=== PATIENT | female | born 1950 | race Caucasian/White ===

== ENCOUNTER → 2024-11-11 11:02 | Outpatient (CLI) | payer MEDICARE, SELFPAY ==
--- NOTE | 2024-11-11 11:05 | DI.RAD.S_ITS ---
PROCEDURE: FL ARTHROGRAM SHOULDER RT INDICATIONS: Acute rt shoulder pain COMPARISON: [facility], MR, MR SHOULDER RT W CON, 11/11/2024, 11:27. TECHNIQUE: The indications, alternatives, benefits, risks, and complications of the procedure were explained to the patient. Written informed consent was obtained and placed in the chart. The shoulder was examined fluoroscopically and a site for needle placement chosen for entry into the glenohumeral joint from an anterior approach. The skin was prepped and draped in a sterile fashion, and 1% lidocaine infiltrated from skin down to joint capsule. A spinal needle was inserted into the glenohumeral joint, and a small amount of iodinated contrast media injected to confirm intra-articular placement of the needle tip. This was followed by approximately 12 mL dilute solution of a gadolinium containing MR contrast agent. The needle was removed and a dressing was applied. The patient was given postprocedural instructions and sent to the MR suite for MR imaging. FINDINGS: A single fluoroscopic spot image demonstrates intra-articular location of injected iodinated contrast. IMPRESSION: Successful fluoroscopically guided administration of dilute Gadolinium solution into the shoulder joint for MR arthrogram. Dictated by: Zoila Castillo M.D. on 11/12/2024 at 10:29 Approved by: Zoila Castillo M.D. on 11/12/2024 at 10:30
--- NOTE | 2024-11-11 11:05 | DI.MRI.S_ITS ---
PROCEDURE: MR SHOULDER RT W CON INDICATIONS: Acute rt shoulder pain TECHNIQUE: After the administration of 12 mL of dilute intra-articular Gadolinium contrast, oblique coronal T1 and T2 spin echo with fat saturation, oblique sagittal T1 spin echo with and without fat saturation, oblique sagittal T2 fast spin echo with fat saturation, axial T1 spin echo with fat saturation through the shoulder. COMPARISON: None. FINDINGS: Image quality: Excellent. Rotator cuff: Full-thickness rupture of distal supraspinatus and infraspinatus at their insertions on humeral head is seen with up to 3.8 cm medial retraction of torn tendon fibers to the level of acromioclavicular joint. Contrast is seen extending to subacromial subdeltoid bursa. Low-grade intrasubstance partial-thickness tear involving distal subscapularis is seen. Moderate supraspinatus and infraspinatus muscle atrophy is seen on sagittal images. Bones and bursae: Superior migration of humeral head in relation to glenoid. Moderate acromioclavicular joint osteoarthritis and [id number] glenohumeral joint osteoarthritis. No acute fracture or dislocation. Capsule and soft tissues: Signal abnormality and fraying involving superior glenoid labrum is seen suggestive of superior labral tear. The glenohumeral ligaments appear intact. The long head of the biceps tendon demonstrates normal location and morphology. No intra-articular bodies. IMPRESSION: 1. Full-thickness rupture of distal supraspinatus and infraspinatus at their insertions on humeral head with up to 3.8 cm medial retraction of torn tendon fibers to the level of acromioclavicular joint. Moderate supraspinatus and infraspinatus muscle atrophy. 2. Low-grade intrasubstance partial-thickness tear involving distal subscapularis. 3. Superior migration of humeral head in relation to glenoid. No acute fracture or dislocation. Moderate acromioclavicular joint osteoarthritis and [id number] glenohumeral joint osteoarthritis. No loose bodies. 4. Finding is suggestive of superior glenoid labral tear. Dictated by: Deandre Wallace M.D. on 11/11/2024 at 13:53 Approved by: Deandre Wallace M.D. on 11/11/2024 at 15:40
[2024-11-11] MEDS: SODIUM CHLORIDE 0.9 % 20 ML VIAL IV (11:47)
[2024-11-11] MEDS: LIDOCAINE 1% 20 ML INJ (11:47)
== END ==
PROVIDERS: PCP Nurse Practitioner Family; Referring Provider Nurse Practitioner Family; Visit Provider Nurse Practitioner Family
DX: M75.121 Complete rotator cuff tear or rupture of right shoulder, not specified as traumatic (principal); M19.011 Primary osteoarthritis, right shoulder; M25.511 Pain in right shoulder
CPT/HCPCS: 23350; 73040; 73222; A9579; Q9967